=== PATIENT | female | born 1950 | race Caucasian/White ===

== ENCOUNTER 2017-12-15 09:28 | Day surgery (SDC) | payer MEDICARE ==
[2017-12-14 10:24] VITALS: BMI 30.4
[2017-12-15 10:01] LABS: #Basophils 0.1 thou/uL (0.0-0.2); #Eosinphils 0.1 thou/uL (0.0-0.7); #Lymphocytes 1.7 thou/uL (1.20-3.40); #Monocytes 0.4 thou/uL (0.11-0.59); #Neutrophils 3.5 thou/uL (1.40-6.50); %Basophils 1.1 % (0.0-1.0); %Lymphocytes 29.8 % (21.0-51.0); %Monocytes 6.7 % (0.0-10.0); %Neutrophils 60.5 % (42.0-75.0); Hemoglobin 15.2 g/dL (12.0-16.0); Mean Corpuscular HGB CONC 32.6 g/dL (32.0-36.0); Mean Corpuscular Hemoglobin 32.5 pg (27.0-31.0); Mean Corpuscular Volume 99.6 fL (78.0-98.0); Mean Platelet Volume 7.8 fL (7.4-10.4); Platelet Count 246 thou/uL (130-400); RBC Distribution Width 12.1 % (11.5-14.5); Red Blood Cell (RBC) Count 4.68 mill/uL (4.20-5.40); White Blood Cell (WBC) Count 5.9 thou/uL (4.8-10.8)
[2017-12-15] MEDS ORDERED: Ketorolac Tromethamine 30 MG/ML VIAL ONE ×2 (10:04→13:14)
[2017-12-15] MEDS ORDERED: Sodium Chloride 0.9% 100 ML ONE (10:05)
[2017-12-15] MEDS ORDERED: cefOXitin 2 GM VIAL ONE (10:05)
[2017-12-15 10:21] LABS: Anion Gap 13 mmol/L (10-20); BUN (Urea Nitrogen) 10 mg/dL (9.8-20.1); Calc. Creatinine Clearance 87 mL/min (70-130); Calcium 9.8 mg/dL (7.8-10.44); Carbon Dioxide 28 mmol/L (23-31); Chloride 104 mmol/L (98-107); Estimated GFR-MDRD 69; Glucose 109 mg/dL (80-115); Potassium 3.7 mmol/L (3.5-5.1); Sodium 141 mmol/L (136-145)
[2017-12-15] MEDS ORDERED: Fentanyl 100 MCG/2 ML VIAL ONE (10:41)
[2017-12-15] MEDS ORDERED: Lidocaine 2% PF Inj 2 ML VIAL ONE (10:47)
[2017-12-15] MEDS ORDERED: Bupivacaine/Epinephrine 0.25% 30 ML VIAL ONE (10:47)
[2017-12-15] MEDS ORDERED: metroNIDAZOLE 500 MG/100 ML BAG ONE (11:00)
[2017-12-15] MEDS ORDERED: Lidocaine 2% Jelly 5 ML TUBE ONE (11:39)
[2017-12-15] MEDS ORDERED: Lidocaine 1% PF 5 ML VIAL ONE (13:14)
[2017-12-15] MEDS ORDERED: PROPOFOL 200 MG/20 ML VIAL ONE (13:14)
[2017-12-15] MEDS ORDERED: Dexamethasone 20 MG/5 ML VIAL ONE (13:14)
[2017-12-15] MEDS ORDERED: Ondansetron HCl/PF 4 MG/2 ML Vial ONE (13:14)
--- NOTE | 2017-12-16 10:46 | PDOC.OP ---
Operative Note - Operative Note Operative Note: PROCEDURE: Open hemorrhoidectomy, 3 column DATE OF PROCEDURE: 12/16/19 SURGEON: Rachel Harvey M.D. PREOPERATIVE DIAGNOSES: Combined internal/external hemorrhoids POSTOPERATIVE DIAGNOSIS: Combined internal/external hemorrhoid HISTORY: Patient with hemorrhoids which is been symptomatic for many years. The external component is no longer a symptomatic but she has developed severe bleeding recently from internal hemorrhoids. Due to large external component direct the patient was made to proceed with open hemorrhoidectomy PROCEDURE IN DETAIL: After informed consent was obtained and appropriate preoperative antibiotics were administered the patient was taken to the operating room she was placed in supine position and general anesthesia was administered. She was placed in lithotomy and prepped and draped in a standard sterile fashion. Four-quadrant anoscopy was carried out and the patient was noted to have a very large combined hemorrhoid with stigmata of recent bleeding from the internal component at the left lateral position. She was also noted to have significant hemorrhoidal disease at the right anterior and right posterior position. Local anesthesia was infused circumferentially for a field block and the left lateral hemorrhoid was excised by incising the skin externally and elevating the hemorrhoidal tissue off the underlying muscle and dividing the hemorrhoidal tissue with LigaSure down to the base of the internal hemorrhoid. The incision was then closed with a running locking chromic suture leaving the external portion open to drain. The right anterior and right posterior hemorrhoidal bundles were excised in identical manner. Additional local anesthesia was infused for postoperative pain control and a Gelfoam and lidocaine jelly plug placed into the anal canal. Estimated blood loss was minimal. There were no complications. Specimens are hemorrhoids.
== END 2017-12-16 14:20 | disposition home or self-care (01) ==
LOC: SDC 09:28
PROVIDERS: ATTEND Surgery
PROC: 06BY0ZC Excision of Hemorrhoidal Plexus, Open Approach (ICD-10-PCS; principal; 2017-12-15)
DX: K64.8 Other hemorrhoids (principal); E78.5 Hyperlipidemia, unspecified; Z79.899 Other long term (current) drug therapy
CPT/HCPCS: 36415; 80048; 85025; 88304; J0131; J0694; J1100; J1885; J2001; J2405; J2704; J3010; J7050

== ENCOUNTER 2018-11-11 08:23 | Outpatient (CLI) | payer MEDICARE ==
--- NOTE | 2018-11-11 08:55 | MMO ---
Bilateral MAMMO Bilat Screen [facility]. CLINICAL HISTORY: Patient is 68 years old and is seen for screening. VIEWS: The views performed were: . FILMS COMPARED: The present examination has been compared to prior imaging studies performed at [facility] on 10/21/2016, and at [facility] on 08/10/2012 and 08/11/2013. This study has been interpreted with the assistance of computer-aided detection. MAMMOGRAM FINDINGS: There are scattered fibroglandular densities. There are no suspicious masses, suspicious calcifications, or new areas of architectural distortion. IMPRESSION: THERE IS NO MAMMOGRAPHIC EVIDENCE OF MALIGNANCY. A ROUTINE FOLLOW-UP MAMMOGRAM IN 1 YEAR IS RECOMMENDED. THE RESULTS OF THIS EXAM WERE SENT TO THE PATIENT. ACR BI-RADS Category 1 - Negative MAMMOGRAPHY NOTE: 1. A negative mammogram report should not delay a biopsy if a dominant of clinically suspicious mass is present. 2. Approximately 10% to 15% of breast cancers are not detected by mammography. 3. Adenosis and dense breasts may obscure an underlying neoplasm. Reported by: MONAE ROSAS MD Electonically Signed: [id number]
== END 2018-11-11 08:24 | disposition home or self-care (01) ==
LOC: BICMAMMO 08:23
PROVIDERS: ATTEND Family Medicine
DX: Z12.31 Encounter for screening mammogram for malignant neoplasm of breast (principal)
CPT/HCPCS: 77063; 77067

== ENCOUNTER 2019-04-26 12:49 | Outpatient (CLI) | payer MEDICARE ==
--- NOTE | 2019-04-26 15:04 | MRI ---
MRI OF BRAIN WITHOUT AND WITHOUT IV CONTRAST: 04/26/19 HISTORY: 69-year-old female with balance disorder. Bilateral leg tremors off and on. COMPARISON: None. FINDINGS: There are multiple foci of T2 prolongation in the periventricular white matter some of which demonsta te a pattern seen in Multiple Sclerosis. If the patient has this history, the finding would be consis tent. O/W this is most likely due to chronic small vessel ischemic disease. No restricted diffusion is seen. No evidence of infarct, hemorrhage, mass, midline shift, or abnormal extra-axial fluid collections are seen. No abnormal postcontrast enhancement is seen. The visualized paranasal sinuses and mastoid air cells are well aerated. IMPRESSION: 1. No evidence of acute intracranial processes or mass. 2. Nonspecific white matter changes as discussed above. POS: [facility]
== END 2019-04-26 12:50 | disposition home or self-care (01) ==
LOC: SCSMRI 12:49
PROVIDERS: ATTEND Psychiatry & Neurology Neurology
DX: R26.89 Other abnormalities of gait and mobility (principal)
CPT/HCPCS: 70553; 82565